=== PATIENT | male | born 1950 | race Caucasian/White ===

== ENCOUNTER 2017-06-01 06:14 | Emergency (ER) | payer OTHER ==
[~2017-06-01] VITALS: Ht 180.3 cm; Wt 132.9 kg
[~2017-06-01 06:14] MED LIST: EFFEXOR XR150 MG PO; LANTUS100 UNITS/ SC; LOSARTAN POTASS50 MG PO; METFORMIN HCL1000 MG PO; METOPROLOL TART25 MG PO; NOVOLOG MI100 UNITS/ SC; PANTOPRAZOLE SO40 MG PO; VICTOZA 3-0.6 MG/0.1 SC; VIT B1; VIT B12 PO; VIT D
[2017-06-01] MEDS ORDERED: SODIUM CHLORIDE 0.9% 1000ML 1,000 ML IV ONE (07:00)
[2017-06-01] MEDS ORDERED: ACETAMINOPHEN 325 MG TAB PO ONE (07:00)
== END 2017-06-01 08:18 | disposition left against medical advice (07) ==
LOC: ER 06:14
DX: M79.606 Pain in leg, unspecified (principal)
CPT/HCPCS: 93005; 99284; J7030